=== PATIENT | female | born 1975 | race American Indian/Alaskan Native ===

== ENCOUNTER 2016-09-26 21:41 | Emergency (ER) | payer OTHER ==
[2016-09-26 23:12] LABS: Anion Gap 17 mmol/L; BUN/Creatinine Ratio 11.25; Blood Urea Nitrogen 9 mg/dL (7-17); Calcium 9.2 mg/dL (8.4-10.2); Carbon Dioxide 27 mmol/L (22-30); Glucose 95 mg/dL (65-100); Sodium 140 mmol/L (137-145)
[2016-09-26 23:27] LABS: Hematocrit 35.4 % (30.3-42.9); Hemoglobin 10.9 gm/dl (10.1-14.3); Mean Corpuscular HGB Conc 31 % (30-34); Mean Corpuscular Volume 75 fl (79-97); Platelet Count 261 K/mm3 (140-440); Red Blood Count 4.71 M/mm3 (3.65-5.03); Red Cell Distribution Width 14.5 % (13.2-15.2); White Blood Count 6.5 K/mm3 (4.5-11.0)
[2016-09-26 23:56] LABS: Mean Corpuscular Hemoglobin 23 pg (28-32)
[2016-09-27 05:06] LABS: Bilirubin,Urine NEG (Negative); Blood,Urine SM (Negative); Ketones,Urine NEG (Negative); Leukocyte Esterase,Urine NEG (Negative); Mucus,Urine 1+ /HPF; Nitrite,Urine NEG (Negative); Protein,Urine <15 mg/dL mg/dL (Negative); Urobilinogen,Urine < 2.0 mg/dL (<2.0)
--- NOTE | 2016-09-27 07:16 | Emergency Department Report ---
ED Abdominal Pain HPI - General Chief Complaint: Vaginal Bleeding Stated Complaint: VAGINAL BLEEDING Time Seen by Provider: 09/27/16 07:13 Source: patient Mode of arrival: Ambulatory Limitations: No Limitations - History of Present Illness Initial Comments: She has a history dysfunctional uterine bleeding. She had bleeding last night which was not heavy. She has previously been on iron. She had some abdominal cramping which was typical of the pain she's been having from uterine fibroids. 8 has not resolved. She states that she is seeing Dr. Dyer who has recommended a hysterectomy. However she states that she cannot pay the $2500 for the procedure. She has no supplemental complaints at this time. MD Complaint: abdominal pain -: year(s) Location: LLQ, RLQ Radiation: none Migration to: no migration Severity: mild (now resolved) Quality: cramping Consistency: now resolved Improves With: nothing Worsens With: nothing Context: other Associated Symptoms: denies other symptoms - Related Data Previous Rx's Medication Instructions Recorded Last Taken Type Ferrous Gluconate [Fergon 325 MG 325 mg PO TID #20 tablet 09/27/16 Unknown Rx tab] traMADol [Ultram] 50 mg PO Q6HR PRN #14 tablet 09/27/16 Unknown Rx Allergies Allergy/AdvReac Type Severity Reaction Status Date / Time lisinopril Allergy Angioedema Verified 09/26/16 22:38 ED Review of Systems ROS: Stated complaint: VAGINAL BLEEDING Other details as noted in HPI Constitutional: denies: chills, fever Eyes: denies: eye pain, eye discharge, vision change ENT: denies: ear pain, throat pain Respiratory: denies: cough, shortness of breath, wheezing Cardiovascular: denies: chest pain, palpitations Endocrine: no symptoms reported Gastrointestinal: abdominal pain. denies: nausea, diarrhea Genitourinary: abnormal menses. denies: urgency, dysuria, discharge Musculoskeletal: denies: back pain, joint swelling, arthralgia Skin: denies: rash, lesions Neurological: denies: headache, weakness, paresthesias Psychiatric: denies: anxiety, depression Hematological/Lymphatic: denies: easy bleeding, easy bruising ED Past Medical Hx - Past Medical History Hx Hypertension: Yes Additional medical history: fibroids,boarderline thyroid disease - Surgical History Additional Surgical History: tubiligation - Social History Smoking Status: Never Smoker Substance Use Type: None - Medications Home Medications: Home Medications Medication Instructions Recorded Confirmed Last Taken Type Ferrous Gluconate [Fergon 325 MG 325 mg PO TID #20 tablet 09/27/16 Unknown Rx tab] traMADol [Ultram] 50 mg PO Q6HR PRN #14 tablet 09/27/16 Unknown Rx ED Physical Exam - General Limitations: No Limitations General appearance: alert, in no apparent distress - Head Head exam: Present: atraumatic, normocephalic - Eye Eye exam: Present: normal appearance, PERRL, EOMI. Absent: scleral icterus - ENT ENT exam: Present: mucous membranes moist - Neck Neck exam: Present: normal inspection - Respiratory Respiratory exam: Present: normal lung sounds bilaterally. Absent: respiratory distress - Cardiovascular Cardiovascular Exam: Present: regular rate, normal rhythm. Absent: systolic murmur, diastolic murmur, rubs, gallop - GI/Abdominal GI/Abdominal exam: Present: soft, normal bowel sounds, other (probable uterine fibroid). Absent: distended, tenderness, guarding, rebound, rigid - Extremities Exam Extremities exam: Present: normal inspection - Back Exam Back exam: Present: normal inspection - Neurological Exam Neurological exam: Present: alert, oriented X3, CN II-XII intact. Absent: motor sensory deficit - Psychiatric Psychiatric exam: Present: normal affect, normal mood - Skin Skin exam: Present: warm, dry, intact, normal color. Absent: rash ED Course Vital Signs 09/26/16 09/27/16 09/27/16 22:30 04:19 05:28 Temperature 98.3 F 98.0 F Pulse Rate 60 58 L 63 Respiratory 18 18 18 Rate Blood Pressure 188/110 Blood Pressure 200/112 181/103 [Right] O2 Sat by Pulse 99 100 Oximetry 09/27/16 09/27/16 06:50 07:14 Temperature 98.4 F Pulse Rate 58 L 64 Respiratory 18 16 Rate Blood Pressure Blood Pressure 149/96 155/94 [Right] O2 Sat by Pulse 96 99 Oximetry - Reevaluation(s) Reevaluation #1: Patient her blood pressure medicine. Blood pressure has improved. She needs follow-up on her hypertension. This has been discussed. She will be referred to the [facility]. 09/27/16 07:29 Reevaluation #2: Patient will be discharged after her urine test is negative. 09/27/16 07:36 ED Medical Decision Making - Lab Data Result diagrams: 09/26/16 22:45 09/26/16 22:45 Laboratory Results - last 24 hr 09/26/16 09/26/16 09/27/16 22:45 22:45 04:39 WBC 6.5 RBC 4.71 Hgb 10.9 Hct 35.4 MCV 75 L MCH 23 L MCHC 31 RDW 14.5 Plt Count 261 Sodium 140 Potassium 4.0 Chloride 100.0 Carbon Dioxide 27 Anion Gap 17 BUN 9 Creatinine 0.8 Estimated GFR > 60 BUN/Creatinine Ratio 11.25 Glucose 95 Calcium 9.2 Urine Color Yellow Urine Turbidity Slightly-cloudy Urine pH 6.0 Ur Specific [place] 1.017 Urine Protein <15 mg/dl Urine Glucose (UA) Neg Urine Ketones Neg Urine Blood Sm Urine Nitrite Neg Urine Bilirubin Neg Urine Urobilinogen < 2.0 Ur Leukocyte Esterase Neg Urine WBC (Auto) 3.0 Urine RBC (Auto) 2.0 U Epithel Cells (Auto) 9.0 Urine Mucus 1+ Laboratory Results - last 24 hr 09/26/16 09/26/16 09/27/16 22:45 22:45 04:39 WBC 6.5 RBC 4.71 Hgb 10.9 Hct 35.4 MCV 75 L MCH 23 L MCHC 31 RDW 14.5 Plt Count 261 Sodium 140 Potassium 4.0 Chloride 100.0 Carbon Dioxide 27 Anion Gap 17 BUN 9 Creatinine 0.8 Estimated GFR > 60 BUN/Creatinine Ratio 11.25 Glucose 95 Calcium 9.2 Urine Color Yellow Urine Turbidity Slightly-cloudy Urine pH 6.0 Ur Specific [place] 1.017 Urine Protein <15 mg/dl Urine Glucose (UA) Neg Urine Ketones Neg Urine Blood Sm Urine Nitrite Neg Urine Bilirubin Neg Urine Urobilinogen < 2.0 Ur Leukocyte Esterase Neg Urine WBC (Auto) 3.0 Urine RBC (Auto) 2.0 U Epithel Cells (Auto) 9.0 Urine Mucus 1+ Critical care attestation.: If time is entered above; I have spent that time in minutes in the direct care of this critically ill patient, excluding procedure time. ED Disposition Clinical Impression: Dysfunctional uterine bleeding, Poorly-controlled hypertension, Anemia Uterine fibroid Qualifiers: Uterine leiomyoma location: unspecified location Qualified Code(s): D25.9 - Leiomyoma of uterus, unspecified Disposition: DISCHARGED TO HOME OR SELFCARE Is pt being admited?: No Does the pt Need Aspirin: No Condition: Stable Instructions: Hypertension (ED), Uterine Fibroids (ED), Dysfunctional Uterine Bleeding (ED) Additional Instructions: Follow-up on your blood pressure is required. You should monitor this your your self. Further care and evaluation is recommended at the [facility]. Return any acute change or problem. Prescriptions: Ferrous Gluconate [Fergon 325 MG tab] 325 mg PO TID #20 tablet traMADol [Ultram] 50 mg PO Q6HR PRN #14 tablet PRN Reason: Pain Referrals: PRIMARY CARE, [Primary Care Provider] - 3-5 Days
[2016-09-27 07:19] VITALS: BP 155/94
== END 2016-09-27 07:36 | disposition home or self-care (01) ==
LOC: ED 21:41
DX: N93.8 Other specified abnormal uterine and vaginal bleeding (principal); I10 Essential (primary) hypertension
CPT/HCPCS: 36415; 80048; 81001; 81025; 85027; 99283